=== PATIENT | female | born 1970 | race Caucasian/White ===

== ENCOUNTER 2016-06-19 12:51 | Emergency (ER) | payer MEDICAID ==
[~2016-06-19] VITALS: Ht 170.2 cm; Wt 120.2 kg
[2016-06-19 13:15] VITALS: BP 144/109; PULSE 90; RESP 16; TEMP 97.5; O2SAT 96
--- NOTE | 2016-06-19 14:34 | NUR ---
Patient to ER bed 4 to gown for evaluation. Side rails up. Report given to Nneka DELATORRE.
--- NOTE | 2016-06-19 14:35 | NUR ---
ER Dr. Minaya at bedside examining patient.
--- NOTE | 2016-06-19 14:40 | NUR ---
PRESENTS WITH SORE THROAT FOR 2 DAYS. TAKING MOTRIN AT HOME WITHOUT RELIEF.
--- NOTE | 2016-06-19 14:56 | NUR ---
Patient given written and verbal discharge instructions and verbalizes understanding. ER MD discussed with patient the results and treatment provided. Given copies of tests performed in ER. Patient in stable condition. ID arm band removed. Rx of Z PACK. LIDOCAINE VISCOUS, AND TYLENOL#3 given. Patient educated on pain management and to follow up with PMD. Pain Scale . Opportunity for questions provided and answered. PT DISCHARGED TO [facility].
[2016-06-19 15:15] VITALS: BP_DIAS 70; PULSE 90; TEMP 98.9; O2SAT 99
[2016-06-19 20:57] VITALS: BP_SYST 122; RESP 18
== END 2016-06-19 14:56 | disposition home or self-care (01) ==
LOC: SED 12:51
DX: J02.8 Acute pharyngitis due to other specified organisms (principal); B96.89 Other specified bacterial agents as the cause of diseases classified elsewhere
CPT/HCPCS: 71010; 93005; 99284